=== PATIENT | male | born 2000 | race Caucasian/White ===

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

== ENCOUNTER 2024-12-02 06:32 | Emergency (ER) | payer OTHER ==
[~2024-12-02] VITALS: Ht 167.6 cm; Wt 61.2 kg
[~2024-12-02 06:32] MED LIST: ZITHROMAX TRI-500 MG PO
[2024-12-02 09:25] LABS: BASO % 0.2 % (0.1-1.2); EOS # 0.44 (0.04-0.54); EOS % 2.8 % (0.7-7.0); HEMATOCRIT 42.2 % (40.1-51.0); HEMOGLOBIN 14.5 g/dL (13.7-17.5); LYMPH # 0.64 (1.18-3.74); MEAN CORPUSCULAR HEMOGLOBIN 29.1 pg (25.6-32.2); MONO # 0.69 (0.24-0.82); MONO % 4.3 % (4.7-12.5); NEUT # 14.09 (1.56-6.13); NEUT % 88.3 % (34.0-71.1); PLATELET COUNT 237 K/uL (163-369); RED BLOOD COUNT 4.99 M/uL (4.63-6.08); RED CELL DISTRIBUTION WIDTH 12.4 % (11.6-14.4)
[2024-12-02 10:09] LABS: INFLUENZA A AG POSITIVE (NEGATIVE); INFLUENZA B AG NEGATIVE (NEGATIVE)
[2024-12-02] MEDS ORDERED: CEFTRIAXONE SODIUM 1,000 MG VIAL IM STA (10:29)
[2024-12-02] MEDS ORDERED: CEFTRIAXONE SODIUM 1,000 MG VIAL ONE (10:32)
[2024-12-02] MEDS ORDERED: LIDOCAINE HCL/MPF 1% 5ML VIAL IJ ONE (10:33)
== END 2024-12-02 12:21 | disposition home or self-care (01) ==
LOC: ER 06:32
PROVIDERS: Emergency Medicine
DX: J10.1 Influenza due to other identified influenza virus with other respiratory manifestations (principal)